=== PATIENT | female | born 1960 | race Caucasian/White ===

== ENCOUNTER 2021-12-21 20:21 | Emergency (ER) | payer OTHER ==
[~2021-12-21] VITALS: Ht 167.6 cm; Wt 65.8 kg
[~2021-12-21 20:21] MED LIST: ADVAIR 250-501 EACH; AMBIEN 10 MG TA10 MG; AMBIEN 10 MG TA10 MG PO; BENTYL20 MG PO; BUTORPHANOLNS2; CEPHALEXIN 500500 M3 PO; COLACE100 MG PO; COMBIVENT; COMPAZINE25 MG RECTAL; HYDROCODON-ACE1 EACH PO; IBUPROFEN 800800 M1 PO; MELATONIN3 MG PO; NORCO 5-325 TA1 EACH PO; PREMPRO 0.3 MG1 EACH PO; PROZAC10 MG PO; PROZAC40 MG; REQUIP 1 MG TABL1 M1; SEROQUEL XR 20200 MG; TORADOL 10 MG T10 MG PO; TRIAMCINOLONE A80 G2 TOP; VALIUM2 MG; VALIUM2 MG PO; XOPENEX0.63 MG/3; ZOFRAN ODT4 MG PO
[2021-12-21] MEDS ORDERED: PROZAC20 MG PO (20:44)
[2021-12-21] MEDS ORDERED: ABILIFY10 MG PO (20:45)
[2021-12-21] MEDS ORDERED: PROAIR HFA8.5 GM INH (20:46)
[2021-12-21] MEDS ORDERED: DIAZEPAM 5 MG5 M1 PO (20:46)
[2021-12-21] MEDS ORDERED: ADVAIR 500-501 EACH INH (20:46)
[2021-12-21] MEDS ORDERED: FLONASE 0.05%50 MCG NARES (20:47)
[2021-12-21] MEDS ORDERED: MECLIZINE HCL25 M1 PO (20:48)
[2021-12-21] MEDS ORDERED: PROTONIX 20 MG20 MG PO (20:48)
[2021-12-21] MEDS ORDERED: ENTOCORT EC 3 MG3 MG PO (20:48)
[2021-12-21 21:58] LABS: ABSOLUTE BASOPHILS 0.1 thou/uL (0.0-0.2); ABSOLUTE EOSINOPHILS 0.2 thou/uL (0.0-0.7); ABSOLUTE MONOCYTES 0.6 thou/uL (0.0-1.2); ABSOLUTE NEUTROPHILS 5.6 thou/uL (1.6-8.1); EOSINOPHILS 2.5 %; HEMATOCRIT 42.6 % (37.0-47.0); HEMOGLOBIN 14.1 gm/dL (12.0-15.0); LYMPHOCYTES 23.8 %; MCH 30.9 pg (26.0-34.0); MCHC 33.1 g/dL (28.0-37.0); MCV 93.6 fL (80.0-100.0); MONOCYTES 7.6 %; MPV 6.8 fl. (7.2-11.1); NUCLEATED RBCS 0 /100WBC; PLATELET COUNT* 382 thou/uL (150-400); POLYS 65.1 %; RBC 4.56 mil/uL (4.20-5.00); RDW-CV 14.3 % (10.5-14.5); WBC 8.5 thou/uL (4.0-11.0)
[2021-12-21 22:07] LABS: CREATININE 0.9 mg/dL (0.6-1.3); POTASSIUM 4.3 mmol/L (3.5-5.1)
[2021-12-21 22:12] LABS: ALBUMIN 3.9 g/dL (3.4-5.0); TOTAL BILIRUBIN 0.2 mg/dL (<0.1-1.0); TOTAL PROTEIN 7.1 g/dL (6.4-8.2)
[2021-12-21] MEDS ORDERED: MEDROLDOSEPACK PO (22:25)
[2021-12-21] MEDS ORDERED: FLEXERIL PO (22:25)
[2021-12-21 22:50] VITALS: BP 156/95
--- NOTE | 2021-12-22 15:49 | EKG ---
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1960 Requested By: Jennifer Yen Order Number: [id number] Reading MD: Dixon Glynn Measurements Intervals [place] Rate: 77 P: 123 MN: 187 QRS: 18 QRSD: 109 T: 62 QT: 399 QTc: 452 Interpretive Statements Sinus rhythm Probable septal infarct, old Artifact in lead(s) II,III,aVR,aVF and baseline wander in lead(s) V6 Compared to ECG 04/03/2009 20:21:36 Myocardial infarct finding now present Sinus tachycardia no longer present Electronically Signed On 12-22-2021 15:49:35 [employer] by Dixon Glynn [email or web address] <ELECTRONICALLY SIGNED> By: Dixon Glynn MD, FACC 12/22/21 1549 40 40 Dixon Glynn MD, FAC /EPI
== END 2021-12-21 22:55 | disposition home or self-care (01) ==
LOC: M.ERS 20:21
PROVIDERS: Student in an Organized Health Care Education/Training Program
DX: M25.552 Pain in left hip (principal); R42 Dizziness and giddiness; G43.909 Migraine, unspecified, not intractable, without status migrainosus; F41.9 Anxiety disorder, unspecified; F17.210 Nicotine dependence, cigarettes, uncomplicated; Z98.890 Other specified postprocedural states; Z90.49 Acquired absence of other specified parts of digestive tract; Z79.51 Long term (current) use of inhaled steroids; Z79.899 Other long term (current) drug therapy; Z88.1 Allergy status to other antibiotic agents; Z88.2 Allergy status to sulfonamides